=== PATIENT | male | born 1970 | race Caucasian/White ===

== ENCOUNTER 2021-11-08 20:01 | Emergency (ER) | payer SELFPAY ==
[~2021-11-08] VITALS: Ht 175.3 cm; Wt 100.0 kg
[2021-11-08 20:10] VITALS: BP 146/75
== END 2021-11-08 22:00 | disposition left against medical advice (07) ==
LOC: EDUNIT# 20:01 → EMS 20:13
DX: S91.311A Laceration without foreign body, right foot, initial encounter (principal); W45.8XXA Other foreign body or object entering through skin, initial encounter; Y93.89 Activity, other specified; Y92.89 Other specified places as the place of occurrence of the external cause; Y99.8 Other external cause status; Z53.21 Procedure and treatment not carried out due to patient leaving prior to being seen by health care provider